=== PATIENT | male | born 1965 | race Caucasian/White ===

== ENCOUNTER 2021-04-25 14:14 | Emergency (ER) | payer OTHER ==
[2021-04-25 14:28] VITALS: BP 116/82; PULSE 91; TEMP 98.3; BMI 33.9
[2021-04-25] MEDS ORDERED: ACETAMINOPHEN 500 MG TABLET (FP) PO ONE (16:12)
[2021-04-25] MEDS ORDERED: ACETAMINOPHEN 500 MG TABLET (FP) ONE (16:22)
== END 2021-04-25 17:00 | disposition home or self-care (01) ==
LOC: JER 14:14
DX: U07.1 COVID-19 (principal)
CPT/HCPCS: 99283-25